=== PATIENT | female | born 1965 | race African-American/Black ===

== ENCOUNTER 2017-07-23 11:21 | Inpatient (IN) | payer SELFPAY ==
--- NOTE | 2017-07-23 11:31 | ED Physician Documentation ---
General Adult - HISTORIAN Historian: patient - HPI Stated Complaint: R arm swelling, ? bug bite Chief Complaint: General Adult Onset: days ago Timing: still present Severity: mild Further Comments: yes (Pt is a 52 yo female with pain, swelling, redness of R arm beginning at the wrist and extending proximally. Pt has streaking to above the R elbow. No fever, n/v. Pt thinks that infection began with an insect bite. Tetanus status unknown.) - ROS CONST: no problems EYES/ENT: none CVS/RESP: none GI/: none MS/SKIN/LYMPH: other (pain, swelling, redness R wrist/arm) - PAST HX Past History: other (DMII, HTN) Allergies/Adverse Reactions: Allergies Allergy/AdvReac Type Severity Reaction Status Date / Time No Known Drug Allergies Allergy Verified 07/23/17 11:43 Home Medications: Ambulatory Orders Medication Instructions Recorded Aspirin EC [Ecotrin] 81 mg PO DAILY 07/23/17 Lisinopril [Prinivil] 20 mg PO QD 07/23/17 Metformin HCl [Glucophage] BID 07/23/17 Metoprolol Tartrate [Lopressor] 25 mg PO BID 07/23/17 Ranitidine HCl 150 mg PO BID 07/23/17 Simvastatin [Zocor] 40 mg PO HS 07/23/17 - SOCIAL HX Smoking History: quit greater than 1 year - FAMILY HX Family History: No - REVIEWED ASSESSMENTS Nursing Assessment Reviewed: Yes Vitals Reviewed: Yes Progress - Progress Progress: Tdap 0.5 ml IM Blood cx - pending Vancomycin 1.5 mg IV Admit to [facility]. General Adult Physical Exam - PHYSICAL EXAM GENERAL APPEARANCE: mild distress EENT: pharynx normal NECK: normal inspection, supple RESPIRATORY: no resp distress, chest non-tender, breath sounds normal CVS: reg rate & rhythm, heart sounds normal BACK: normal inspection SKIN: other (R wrist swelling, tenderness, warmth, extending proximally with streaking to above the R elbow.) EXTREMITIES: other (R wrist swelling, tenderness, warmth, extending proximally with streaking to above the R elbow.) NEURO: oriented X3, motor nml, sensation nml Discharge Clincal Impression: cellulitis, R arm Home Medications: Ambulatory Orders Aspirin EC [Ecotrin] 81 mg PO DAILY 07/23/17 Lisinopril [Prinivil] 20 mg PO QD 07/23/17 Metformin HCl [Glucophage] BID 07/23/17 Metoprolol Tartrate [Lopressor] 25 mg PO BID 07/23/17 Ranitidine HCl 150 mg PO BID 07/23/17 Simvastatin [Zocor] 40 mg PO HS 07/23/17 Condition: Stable Disposition: 09 ADMITTED INPATIENT Decision to Admit: [id number] Decision Time: 13:17
[2017-07-23] MEDS ORDERED: DIPH,PERTUSS(ACELL),TET VAC/PF 0.5 ML DISP.SYRIN IM ONE (11:36)
[2017-07-23 12:21] LABS: BASOPHILS % 0.4 (0.0-1.5); EOSINOPHILS % 6.2 % (0.0-6.8); MEAN CORPUSCULAR HEMOGLOBIN 26.6 pg (28.0-34.0); MEAN CORPUSCULAR VOLUME 86.5 fl (80.0-100.0); MONOCYTES % 3.6 % (0.0-11.0); NEUTROPHILS # 5.2 # k/uL (1.4-7.7)
[2017-07-23 12:25] LABS: eGFR (African) > 60; eGFR (Non-African) > 60
[2017-07-23] MEDS ORDERED: VANCOMYCIN HCL IV ONE (13:12)
[2017-07-23] MEDS ORDERED: SODIUM CHLORIDE 0.9% IV ONE (13:12)
[2017-07-23] MEDS ORDERED: SALINE FLUSH 10 ML DISP.SYRIN IVF ONE (15:26)
[2017-07-23] MEDS ORDERED: BISACODYL 5 MG TABLET.DR PO PRN (15:48)
--- NOTE | 2017-07-23 15:56 | History and Physical Report ---
History of Present Illnes - History of Present Illness Reason for Visit: Cellulitis History of Present Illness: 52 year old female who presented to the ER for swelling and redness of her right forearm. She noted several insect bites on her right arm with surrounding redness and warmth with red streaking up to her right shoulder. She was found to have a normal WBC count and was afebrile in the ER, but was admitted for observation based on the significant cellulitis with streaking found on exam. She is a type 2 diabetic but blood sugar was well controlled with nonfasting sugar of 112 in ER. Rosa notes the insect bites are very itchy. She states she is feeling well otherwise but the swelling was very worrisome to her. - Past Medical History Cardiac: HTN, Hyperlipidemia Pulmonary: denies: Asthma Gastrointestinal: GERD Endocrine: Diabetes - Past Surgical History Past Surgical History: None - Past Social History Smoke: No Alcohol: None Lives: Alone - Health Maintenance Health Maintenance: Influenza Vaccine Influenza Vaccine: Current for this Influenza Season Pneumonia Vaccine: No Resuscitation Status: Resusciation Status Resuscitation Status Full Code Review of Systems - Review of Systems Constitutional: negative: Fever, Chills Eyes: negative: vision change ENT: negative: Ear Pain, Nose Discharge, Throat Pain Respiratory: negative: Cough, Shortness of Breath Cardiovascular: negative: Chest Pain Gastrointestinal: negative: Nausea, Vomiting, Abdominal Pain Genitourinary: negative: Dysuria Musculoskeletal: negative: Neck Pain, Back Pain Skin: Other (insect bites with surrounding redness and streaking up her arm) Neurological: negative: Weakness, Numbness - Medications/Allergies Allergies/Adverse Reactions: Allergies Allergy/AdvReac Type Severity Reaction Status Date / Time No Known Drug Allergies Allergy Verified 07/23/17 11:43 Home Medications: Home Medications Aspirin EC [Ecotrin] 81 mg PO DAILY 07/23/17 Lisinopril [Prinivil] 20 mg PO QD 07/23/17 Metformin HCl [Glucophage] BID 07/23/17 Metoprolol Tartrate [Lopressor] 25 mg PO BID 07/23/17 Ranitidine HCl 150 mg PO BID 07/23/17 Simvastatin [Zocor] 40 mg PO HS 07/23/17 Current Inpatient Medications: Current Inpatient Medications Aspirin (Ecotrin) 81 mg PO DAILY [facility] Bisacodyl (Dulcolax) 5 - 10 mg PO DAILY PRN PRN Reason: Constipation Diphenhydramine HCl (Benadryl) 25 mg PO Q6 PRN PRN Reason: Allergy Symptoms Enoxaparin Sodium (Lovenox) 40 mg SQ Q12 [facility] Stop: 08/06/17 20:59 Famotidine (Pepcid) 20 mg PO BID [facility] Lisinopril (Prinivil) 20 mg PO QD [facility] Metformin HCl (Glucophage) 500 mg PO BID [facility] Metoprolol Tartrate (Lopressor) 25 mg PO BID [facility] Simvastatin (Zocor) 40 mg PO HS [facility] Exam - Exam Vital Signs: Vital Signs (72 hours) 07/23/17 14:27 Temperature 98.4 F Pulse Rate [ 77 Pulse ox] Respiratory 16 Rate Blood Pressure 141/68 [Left Arm] O2 Sat by Pulse 98 Oximetry General: Alert, Oriented to Person, Oriented to Place, Oriented to Time, Cooperative, No acute distress, Obese HEENT: Atraumatic, Mouth Mucous membr. moist/[place] Neck: Normal Range of Motion Lungs: Clear to auscultation, Normal air movement, Speaks full Sentences. No: Respiratory Distress Cardiovascular: Regular rate, Normal S1, Normal S2, No murmurs Abdomen: Normal bowel sounds, Soft, No tenderness, No hepatospenomegaly, No masses Integumentary: [place], Warm, Dry, Cellulitis (right forearm with streaking up to right shoulder consisting of erythema and warmth), Other (Multiple insect bites on right upper arm in addition to the bite on her right forearm) Extremities: No clubbing, No cyanosis, No edema, Normal pulses, No tenderness/ swelling Neurological: Normal gait, Normal speech, Strength Equal Bilat, Sensation intact Psych/Mental Status: Mental status NL - Laboratory Results Laboratory Results: Laboratory Results - last 24 hr 07/23/17 07/23/17 12:02 12:03 WBC 7.70 RBC 4.61 Hgb 12.3 Hct 39.9 MCV 86.5 MCH 26.6 L MCHC 30.7 RDW 13.8 Plt Count 246 Neut % (Auto) 67.6 Lymph % (Auto) 20.8 [place] % (Auto) 3.6 Eos % (Auto) 6.2 Baso % (Auto) 0.4 Neut # (Auto) 5.2 Lymph # (Auto) 1.6 [place] # (Auto) 0.3 Eos # (Auto) 0.5 Baso # (Auto) 0.0 Reactive Lymphs % 1.5 Reactive Lymphs # 0.1 Sodium 141 Potassium 3.3 L Chloride 106 Carbon Dioxide 29 BUN 13 Creatinine 0.7 Estimated Creat Clear 164 Est GFR ( Amer) > 60 Est GFR (Non-Af Amer) > 60 Glucose 112 H Calcium 9.5 Total Bilirubin 0.2 AST 26 ALT 22 Alkaline Phosphatase 68 Total Protein 7.5 Albumin 4.4 Assessment/Plan - Assessment/Plan (1) Cellulitis Status: Acute Current Visit: Yes Assessment: Cellulitis of right forearm with streaking up right upper arm. The area is erythematous and warm to touch. Her right forearm is noticeably swollen compared to left arm. She notes the area it itching too. Sensation is intact, radial pulses is present and regular. Plan: Vancomycin started in ER and continued upon admission. Bactrim PO added BID with hopes to be able to discharge patient home on oral antibiotics. Blood cultures drawn in ER. (2) Diabetes Status: Acute Current Visit: Yes Qualifiers: Diabetes mellitus type: type 2 Diabetes mellitus complication status: without complication Assessment: Blood sugar was 112 in ER. Patient takes metformin 500mg BID. She has multiple sodas and snacks in her room that do not comply with the no concentrated sweets diet. Plan: Monitor Blood sugar. Discussed that keeping her blood sugars controlled will aid in controlling infection and may allow her to be discharged sooner. No concentrated sweet diet. VTE Assessment - RISK FACTOR SCORE VTE RISK FACTOR SCORES: AGE 40-60 YEARS, ACUTE INFECTION OTHER THEN SEPSIS - RISK VTE MODERATE RISK: SCORE OF 2 (RISK PROXIMAL DVT 2-4%) PROPHYAXIS NEEDED (ordred )
[2017-07-23] MEDS ORDERED: SULFAMETHOXAZOLE/TRIMETHOPRIM 1 EACH TABLET PO ONE (17:01)
[2017-07-23] MEDS ORDERED: ENOXAPARIN SODIUM 40 MG/0.4 ML DISP.SYRIN SQ ONE (17:01)
[2017-07-23] MEDS ORDERED: SIMVASTATIN 40 MG TABLET ONE (17:02)
[2017-07-23] MEDS ORDERED: FAMOTIDINE 20 MG TABLET ONE (17:02)
[2017-07-23] MEDS ORDERED: LISINOPRIL 20 MG TABLET ONE (17:03)
[2017-07-23] MEDS: METOPROLOL TARTRATE 25 MG TABLET PO SCH ×2 (17:07→20:05)
[2017-07-23] MEDS: LISINOPRIL 20 MG TABLET PO SCH ×2 (17:07→20:06)
[2017-07-23 18:40] VITALS: BMI 37.2
[2017-07-23] MEDS ORDERED: diphenhydrAMINE HCL 25 MG TABLET PO ONE (20:02)
[2017-07-23] MEDS: diphenhydrAMINE HCL 25 MG TABLET PO PRN (20:04)
[2017-07-23] MEDS: SULFAMETHOXAZOLE/TRIMETHOPRIM 1 EACH TABLET PO SCH (20:05)
[2017-07-23] MEDS: FAMOTIDINE 20 MG TABLET PO SCH (20:07)
[2017-07-23] MEDS: ENOXAPARIN SODIUM 40 MG/0.4 ML DISP.SYRIN SQ SCH (20:07)
[2017-07-23] MEDS ORDERED: SIMVASTATIN 40 MG TABLET PO SCH (21:00)
[2017-07-24] MEDS ORDERED: SULFAMETHOXAZOLE/TRIMETHOPRIM 1 EACH TABLET PO ONE (04:15)
[2017-07-24] MEDS ORDERED: FAMOTIDINE 20 MG TABLET ONE (04:16)
[2017-07-24] MEDS ORDERED: ASPIRIN EC 81 MG TABLET.DR ONE (04:16)
[2017-07-24] MEDS ORDERED: LISINOPRIL 20 MG TABLET ONE (04:16)
[2017-07-24 07:02] LABS: BASOPHILS % 0.4 (0.0-1.5); EOSINOPHILS % 6.6 % (0.0-6.8); MEAN CORPUSCULAR VOLUME 87.5 fl (80.0-100.0); MONOCYTES % 4.9 % (0.0-11.0); NEUTROPHILS # 4.9 # k/uL (1.4-7.7)
[2017-07-24 07:16] LABS: eGFR (African) > 60; eGFR (Non-African) > 60
[2017-07-24] MEDS ORDERED: VANCOMYCIN HCL 1 GM VIAL IV ONE (07:48)
[2017-07-24] MEDS ORDERED: 0.9 % SODIUM CHLORIDE 500 ML IV ONE (07:49)
[2017-07-24] MEDS: METOPROLOL TARTRATE 25 MG TABLET PO SCH (08:31)
[2017-07-24] MEDS: SULFAMETHOXAZOLE/TRIMETHOPRIM 1 EACH TABLET PO SCH (08:31)
[2017-07-24] MEDS: FAMOTIDINE 20 MG TABLET PO SCH (08:31)
[2017-07-24] MEDS: ENOXAPARIN SODIUM 40 MG/0.4 ML DISP.SYRIN SQ SCH (08:33)
[2017-07-24] MEDS ORDERED: SALINE FLUSH 10 ML DISP.SYRIN IVF ONE ×2 (08:34→10:47)
[2017-07-24] MEDS ORDERED: diphenhydrAMINE HCL 25 MG TABLET PO ONE (08:34)
[2017-07-24] MEDS: diphenhydrAMINE HCL 25 MG TABLET PO PRN (08:35)
[2017-07-24] MEDS ORDERED: ASPIRIN EC 81 MG TABLET.DR PO SCH (09:00)
[2017-07-24] MEDS ORDERED: SODIUM CHLORIDE 0.9% IV SCH (09:00)
[2017-07-24] MEDS ORDERED: VANCOMYCIN HCL IV SCH (09:00)
--- NOTE | 2017-07-24 12:45 | Discharge Summary ---
Discharge Summary - Discharge Sumary History of Present Illness: 52 year old female who presented to the ER for swelling and redness of her right forearm. She noted several insect bites on her right arm with surrounding redness and warmth with red streaking up to her right shoulder. She was found to have a normal WBC count and was afebrile in the ER, but was admitted for observation based on the significant cellulitis with streaking found on exam. She is a type 2 diabetic but blood sugar was well controlled with nonfasting sugar of 112 in ER. Rosa notes the insect bites are very itchy. She states she is feeling well otherwise but the swelling was very worrisome to her. Condition at Discharge: Stable Home Medications: Ambulatory Orders Medication Instructions Recorded Aspirin EC [Ecotrin] 81 mg PO DAILY 07/23/17 Lisinopril [Prinivil] 20 mg PO QD 07/23/17 Metformin HCl [Glucophage] BID 07/23/17 Metoprolol Tartrate [Lopressor] 25 mg PO BID 07/23/17 Ranitidine HCl 150 mg PO BID 07/23/17 Simvastatin [Zocor] 40 mg PO HS 07/23/17 Sulfamethoxazole/Trimethoprim 1 each PO BID #20 tablet 07/24/17 [Bactrim DS] Consultations this Visit: None Procedures this Visit: None Allergies/Adverse Reactions: Allergies Allergy/AdvReac Type Severity Reaction Status Date / Time No Known Drug Allergies Allergy Verified 07/23/17 11:43 Discharge Summary: Patient was started on IV vancomycin and PO Bactrim.Patient WBC count remains stable. Patient did run a low-grade fever but does not have any associated chills. Patient blood sugars were running in the low to mid 100 range. By the next day the patient's erythema to her upper extremity appeared to be much improved. Patient vital signs been stable and was felt that the patient could be discharged in stable condition. Patient was continued on antibiotic on an outpatient basis. - Final Diagnosis (1) Cellulitis Problems: improved at this time Right or Left: Right (2) Diabetes Problems: stable
[2017-07-24 14:04] VITALS: BP 138/77
== END 2017-07-24 13:25 | disposition home or self-care (01) | DRG 639 ==
LOC: ED 11:21 → UNDOADMIN 13:12 → SOUTH 13:12
PROVIDERS: ADMIT Physician Assistant; ATTEND Physician Assistant
DX: E11.628 Type 2 diabetes mellitus with other skin complications (principal)
CPT/HCPCS: 36415; 80053; 85025; 87040; 90715; A9270; G0379; J1650; J3370; J7060; Q0163; 99222; 99238; 99284; S1016